=== PATIENT | female | born 1935 | race Caucasian/White ===

== ENCOUNTER → 2016-09-25 | Outpatient (CLI) | payer OTHER ==
[2016-06-09 12:25] VITALS: BP 139/60
[2016-09-25 09:03] LABS: ALANINE AMINOTRANSFERASE 19 Units/L (12-78); ALBUMIN 3.8 g/dL (3.4-5.0); ALKALINE PHOSPHATASE 95 Units/L (46-116); ASPARTATE AMINO TRANSFERASE 20 Units/L (15-37); BLOOD UREA NITROGEN 18 mg/dL (7-18); CALCIUM 9.4 mg/dL (8.5-10.1); CARBON DIOXIDE 28.6 mmol/L (21-32); CHLORIDE 104 mmol/L (98-107); CHOL/HDL RATIO 2.7 (0.0-5.0); CHOLESTEROL 194 mg/dL (0-200); CREATININE 1.25 mg/dL (0.55-1.02); FREE T4 (FREE THYROXINE) 1.16 ng/dL (0.76-1.46); GLUCOSE 88 mg/dL (65-99); HDL CHOLESTEROL 73 mg/dL (40-60); SODIUM 142 mmol/L (136-145); TOTAL PROTEIN 7.6 g/dL (6.4-8.2); TRIGLYCERIDES 122 mg/dL (0-150); TSH (3RD GENERATION) 1.628 uIU/mL (0.358-3.74); eGFR BLACK RACES 53 (>60); eGFR NON BLACK RACES 44 (>60)
[2016-09-25 09:08] LABS: BASOPHILS # (AUTO) 0.1 X10^3/uL (0.0-0.1); EOSINOPHILS # (AUTO) 0.2 x10^3/uL (0.0-0.2); EOSINOPHILS % (AUTO) 2.2 % (0.9-2.9); HEMOGLOBIN 13.2 g/dL (12.0-16.0); LYMPHOCYTES # (AUTO) 1.7 X10^3/uL (1.3-2.9); LYMPHOCYTES % (AUTO) 19.3 % (21.0-51.0); MEAN CORPUSCULAR HEMOGLOBIN 29.8 pg (27.0-34.0); MEAN CORPUSCULAR HGB CONC 34.7 g/dL (33.0-35.0); MEAN CORPUSCULAR VOLUME 85.7 fL (80.0-100.0); MEAN PLATELET VOLUME 9.5 fL (7.4-11.0); MONOCYTES # (AUTO) 0.7 x10^3/uL (0.3-0.8); NEUTROPHILS # (AUTO) 6.2 x10^3/uL (2.2-4.8); NEUTROPHILS % (AUTO) 69.5 % (42.0-75.0); PLATELET COUNT 153 X10^3/uL (150.0-450.0); RED BLOOD COUNT 4.44 X10^6/uL (3.5-5.4); WHITE BLOOD COUNT 8.9 X10^3/uL (3.6-10.0)
== END | disposition home or self-care (01) ==
LOC: LAB 08:16
PROVIDERS: ATTEND Internal Medicine
DX: Z79.899 Other long term (current) drug therapy (principal); Z13.89 Encounter for screening for other disorder
CPT/HCPCS: 36415; 80053; 80061; 82306; 82607; 84439; 84443; 85025